=== PATIENT | male | born 1960 | race Caucasian/White ===

== ENCOUNTER 2017-11-07 19:56 | Emergency (ER) | payer MEDICAID, MEDICARE, OTHER ==
[~2017-11-07] VITALS: Ht 167.6 cm; Wt 70.3 kg
[2017-11-07 21:19] LABS: Basophils # (auto) 0 uL; Basophils % (auto) 0.2 % (0.0-2.0); Eosinophils # (auto) 0.1 uL; Eosinophils % (auto) 0.8 % (0.0-7.0); Hematocrit 45.1 % (41.0-53.0); Hemoglobin 15.8 g/dL (13.5-17.5); Lymphocytes # (auto) 0.8 uL; Lymphocytes % (auto) 8.7 % (10.0-50.0); Mean Corpuscular Volume 88.6 fL (80.0-100.0); Monocytes # (auto) 0.5 uL; Monocytes % (auto) 4.9 % (0.0-12.0); Neutrophils # (auto) 8.1 uL; Neutrophils % (auto) 85.4 % (37.0-80.0); Nucleated Red Blood Cells % 0.1 %; Platelet Count (auto) 242 10^3/uL (140-450); Red Blood Cells 5.09 10^6/uL (4.5-5.90); Red Cell Distribution Width 13.4 % (11.8-14.3); White Blood Cell 9.5 10^3/uL (4.4-10.8)
[2017-11-07 21:36] LABS: INR 0.93 (0.9-1.15); Partial Thromboplastin Time 26.1 sec (23.78-33.04)
[2017-11-07 21:42] LABS: Alanine Aminotransferase 18 U/L (16-61); Albumin 4.1 g/dL (3.4-5.0); Alkaline Phosphatase 95 U/L (45-117); Anion Gap 8 (5-15); Aspartate Aminotransferase 11 U/L (15-37); BUN/Creatinine Ratio 19.1; Bilirubin, Total 0.3 mg/dL (0.2-1.0); Blood Alcohol < 3.0 mg/dL (0-5); Blood Urea Nitrogen 18 mg/dL (7-18); Carbon Dioxide 26 mmol/L (21-32); Chloride 109 mmol/L (98-107); GFR African American 106 mL/min; GFR Non-African American 87 mL/min; Glucose 141 mg/dL (74-106); Magnesium 3.1 mg/dL (1.6-2.6); Potassium 3.8 mmol/L (3.5-5.1); Sodium 143 mmol/L (136-145); Total Protein 7.7 g/dL (6.4-8.2)
[2017-11-08 01:41] LABS: Urine Bacteria NONE SEEN /hpf (None Seen); Urine Blood Negative /uL (Negative); Urine Hyaline Cast FEW /lpf (0 - 2); Urine Mucus FEW (None Seen); Urine Specific Gravity 1.029 (1.001-1.035); Urine WBC 1 /hpf (0 - 3)
[2017-11-08 01:48] LABS: Alcohol, Urine < 3.0 mg/dL (0-5); Amphetamine Screen, Urine NEGATIVE (NEGATIVE); Barbiturate Scree,Urine NEGATIVE (NEGATIVE); Benzodiazephine Screen, Urine NEGATIVE (NEGATIVE); Cannabinoid Screen, Urine NEGATIVE (NEGATIVE); Cocaine Screen, Urine NEGATIVE (NEGATIVE); Opiate Scree,Urine NEGATIVE (NEGATIVE); Phencyclidine Screen, Urine NEGATIVE (NEGATIVE)
[2017-11-08 01:50] VITALS: BP 101/64
== END 2017-11-08 05:48 | disposition home or self-care (01) ==
LOC: ER 19:56 → EDBD 19:56 → ER 11-08 05:48
DX: R56.9 Unspecified convulsions (principal); J45.909 Unspecified asthma, uncomplicated
CPT/HCPCS: 36415; 70450; 71045; 80053; 80307; 80320; 81001; 83735; 83880; 84484; 85025; 85610; 85730; 93005